=== PATIENT | female | born 1980 | race Caucasian/White ===

== ENCOUNTER 2017-09-26 16:52 | Emergency (ER) | payer OTHER ==
[2017-09-26 17:09] VITALS: BP 123/68
--- NOTE | 2017-09-26 17:22 | UC ---
HPI Febrile Illness - HPI Summary HPI Summary: C/O fevers, body aches, occipital headache and cough starting today. - History of Current Complaint Chief Complaint: UCGeneralIllness Time Seen by Provider: 09/26/17 17:16 Hx Obtained From: Patient Hx Last Menstrual Period: 09/23/17 Onset/Duration: Started Days Ago - 2, Worse Since - today Timing: Constant Initial Severity: Mild Current Severity: Moderate Pain Intensity: 8 Aggravating Factors: Nothing Alleviating Factors: OTC Medicine Associated Signs and Symptoms: Cough, Headache, Myalgia - Allergy/Home Medications Allergies/Adverse Reactions: Allergies Allergy/AdvReac Type Severity Reaction Status Date / Time No Known Allergies Allergy Verified 09/26/17 17:09 Home Medications: Home Medications Acetaminophen TAB* [Tylenol TAB*] 650 mg PO Q4H PRN 09/26/17 [History Confirmed 09/26/17] Norgestimate-Ethinyl Estradiol [Ortho Tri-Cyclen Lo Tablet] 1 each PO DAILY 11/06 [History Confirmed 09/26/17] PMH/Surg Hx/FS Hx/Imm Hx Previously Healthy: Yes - Surgical History Surgical History: Yes Surgery Procedure, Year, and Place: c section. D&C - Family History Known Family History: Positive: Cardiac Disease, Hypertension, Diabetes - Social History Occupation: Employed Full-time Lives: With Family Alcohol Use: Rare Substance Use Type: None Smoking Status (MU): Never Smoked Tobacco Review of Systems Constitutional: Fever ENT: Sore Throat Respiratory: Cough Musculoskeletal: Myalgia Neurological: Headache Is Patient Immunocompromised?: No All Other Systems Reviewed And Are Negative: Yes Physical Exam Triage Information Reviewed: Yes Appearance: No Pain Distress, Well-Nourished, Ill-Appearing Vital Signs: Initial Vital Signs Temp 103.3 F 09/26/17 17:04 Pulse 128 09/26/17 17:04 Resp 16 09/26/17 17:04 BP 123/68 09/26/17 17:04 Pulse Ox 98 09/26/17 17:04 Vital Signs Reviewed: Yes Eyes: Positive: Conjunctiva Clear ENT: Positive: Pharynx normal, TMs normal Neck exam: Normal Respiratory: Positive: Wheezing - expiratory wheeze with coughing. Cardiovascular: Positive: RRR, No Murmur, Tachycardia Abdomen Description: Positive: No Organomegaly, Soft. Negative: Nontender - mild LLQ tenderness, McBurney's Point Tenderness, Peritoneal Signs Musculoskeletal Exam: Normal Neurological Exam: Normal Psychological Exam: Normal Skin Exam: Normal Course/Dx - Febrile Illness Differential Diagnoses: Cellulitis, Pneumonia, Sepsis, Viremia - Diagnoses Clinic Provider Diagnoses: Acute URI. Acute bronchospasm Discharge - Sign-Out/Discharge Documenting (check all that apply): Discharge/Admit/Transfer - Discharge Plan Condition: Stable Disposition: HOME Prescriptions: predniSONE TAB* [Deltasone 20 MG TAB*] 20 mg PO DAILY #18 tab Patient Education Materials: Upper Respiratory Infection (ED), Wheezing (ED), Prednisone (By mouth) Referrals: Catrachita Mejia PA [Primary Care Provider] - - Billing Disposition and Condition Condition: STABLE Disposition: Home
[2017-09-26] MEDS ORDERED: Ibuprofen TAB* 600 MG PO ONE (17:23)
[2017-09-26] MEDS ORDERED: predniSONE TAB* 20 MG PO ONE (17:49)
== END 2017-09-26 17:58 | disposition home or self-care (01) ==
LOC: UCCORT 16:52
DX: J06.9 Acute upper respiratory infection, unspecified (principal); J98.01 Acute bronchospasm
CPT/HCPCS: 99202; A9270-GY; G0463; J7512